=== PATIENT | male | born 1960 | race Caucasian/White ===

== ENCOUNTER 2020-02-23 07:27 | Outpatient (CLI) | payer OTHER, SELFPAY ==
--- NOTE | ~2020-02-23 | US_ITS ---
EXAMINATION: US right upper quadrant EXAM DATE: 02/23/2020 08:14 INDICATION: Elevated liver enzymes. TECHNIQUE: Multiple grayscale and Doppler images of the abdomen right upper quadrant were obtained (tayla y a technologist who performed the scan) and subsequently reviewed. There is no prior study for lior toney. FINDINGS: The pancreatic head and body are normal in appearance. The pancreatic tail is not visualized. There is echogenic liver parenchyma, hepatic steatosis. There are no focal liver lesions identified. Th ere is no evidence of intrahepatic biliary duct dilation. Portal venous flow was seen in the hepatop edal, normal direction and has normal Doppler waveform. No right-sided hydronephrosis. Common bile duct measures 5 mm, which is normal. The gallbladder wall is normal in thickness, with ex pected amount of distention. No sonographic evidence of pericholecystic fluid. There is no cholelit hiases. Technologist performing exam reports patient did not demonstrate sonographic Zhou's sign. Please note that this sign is less reliable in patients who have received pain medication. IMPRESSION: 1. Hepatic steatosis. Reviewed, dictated and finalized at location B. IMPRESSION: 1. Hepatic steatosis.
== END 2020-02-23 07:28 | disposition home or self-care (01) ==
LOC: ANHIMG 07:29
PROVIDERS: PCP Family Medicine; Visit Provider Physician Assistant
DX: R74.8 Abnormal levels of other serum enzymes (principal)
CPT/HCPCS: 76705

== ENCOUNTER 2020-02-24 00:24 | Outpatient (CLI) | payer OTHER, SELFPAY ==
[2020-02-24 19:45] LABS: SARS-CoV-2 RNA PCR Negative
== END 2020-02-24 00:25 | disposition home or self-care (01) ==
LOC: ANHCOVIDDT 00:25
PROVIDERS: PCP Family Medicine; Visit Provider Internal Medicine Gastroenterology
DX: Z01.812 Encounter for preprocedural laboratory examination (principal); Z11.59 Encounter for screening for other viral diseases
CPT/HCPCS: 87635; C9803; U0003

== ENCOUNTER 2020-02-26 03:56 | Day surgery (SDC) | payer OTHER, SELFPAY ==
[2020-02-19 11:46] VITALS: BMI 32.8
[2020-02-26 06:44] VITALS: BMI 29.5
[2020-02-26] MEDS: LACTATED RINGERS 1,000 ML 150 ML IV CONT (07:00)
--- NOTE | 2020-02-26 07:17 | P.CONGI_ITS ---
Assessment and Plan Assessment and plan (1) History of colon polyps: Code(s): Z86.010 - Personal history of colonic polyps Status: Acute Assessment and Plan: Plan is for colonoscopy at this time it has been 5 years since last colonoscopy exam. Patient has a history of colon polyps himself as well as family history of colon polyps in his mother. Plan to proceed with colonoscopy today. (2) Family history of colonic polyps: Code(s): Z83.71 - Family history of colonic polyps Status: Acute (3) Hepatic steatosis: Code(s): K76.0 - Fatty (change of) liver, not elsewhere classified Status: Acute (4) Type 2 diabetes mellitus with hyperglycemia: Code(s): E11.65 - Type 2 diabetes mellitus with hyperglycemia Status: Acute GI Consult Note Consult date/time: 02/26/20 07:17 HPI: Jefe Rodriguez is a 59 year old male Seen in evaluation at the request of Dr. Eugene Spencer. Patient presents for colonoscopy. He has a distant history of colon polyps himself. His current weight appetite bowel was normal. He denies abdominal pain is bowel habits are normal. He denies any blood in his stools. Family history is significant that his mother has had colon polyps as well. Patient gives a recent diagnosis diabetes mellitus. His known to have fatty liver. [facility] Past Medical History Medical History Elevated liver enzymes Hepatic steatosis Left ear impacted cerumen Family History Family History Father Family history of coronary artery disease Social History Social History Smoking status: Former smoker Tobacco type: cigarettes Smoking end date: 08/27/19 Alcohol intake: never Meds Home Medications and Allergies Home Medications Medication Instructions Recorded Confirmed Type blood sugar diagnostic #100 each 09/04/19 Rx amlodipine 5 mg tablet 5 mg PO DAILY #30 tablet 01/23/20 02/19/20 Rx empagliflozin 25 mg tablet 25 mg PO QAM #30 tablet 01/23/20 02/19/20 Rx lisinopril 40 mg tablet 40 mg PO DAILY #90 tablet 01/23/20 02/19/20 Rx atorvastatin 10 mg tablet See Rx Instructions .ROUTE 02/06/20 02/19/20 Rx .COMPLEX #90 tablet aspirin [Aspir-81] 81 mg PO DAILY 02/19/20 02/19/20 History metformin 2,000 mg PO DAILY 02/19/20 02/19/20 History Allergies Allergy/AdvReac Type Severity Reaction Status Date / Time Penicillins Allergy Intermediate Nausea and Verified 02/26/20 06:43 Vomiting Exam Narrative: Exam Narrative: Physical exam reveals patient to be alert. Vital signs stable. HEENT exam unremarkable. Patient is anicteric. Lungs are clear to auscultation and percussion. Heart is without murmur or extra sounds. Abdominal exam bowel sounds are present soft nontender with no organomegaly. Digital external rectal exam is normal.
--- NOTE | 2020-02-26 07:29 | WPDANESEPPF ---
Anes - Initial Pre Proc Eval Procedure: Operation Date: 02/26/20 08:00 Proposed Procedures p Screening Colonoscopy - Feliz Reyes MD Date/Time: 02/26/20 07:29 Surgeon: Feliz Reyes MD Pre Op Diagnosis: Neoplasm Screening, Hx of Colon Polyps Patient Data Age: 59 Gender: M Height: 1.83 m Weight: 98.6 kg Allergies Allergy/AdvReac Type Severity Reaction Status Date / Time Penicillins Allergy Intermediate Nausea and Verified 02/26/20 06:43 Vomiting Home Medications Medication Instructions Recorded Confirmed Type blood sugar diagnostic #100 each 09/04/19 Rx amlodipine 5 mg tablet 5 mg PO DAILY #30 tablet 01/23/20 02/19/20 Rx empagliflozin 25 mg tablet 25 mg PO QAM #30 tablet 01/23/20 02/19/20 Rx lisinopril 40 mg tablet 40 mg PO DAILY #90 tablet 01/23/20 02/19/20 Rx atorvastatin 10 mg tablet See Rx Instructions .ROUTE 02/06/20 02/19/20 Rx .COMPLEX #90 tablet aspirin [Aspir-81] 81 mg PO DAILY 02/19/20 02/19/20 History metformin 2,000 mg PO DAILY 02/19/20 02/19/20 History Patient hx anesthesia problems: none Family hx anesthesia problems: none PMFSH Past Medical History Medical History (Updated 02/26/20 @ 07:30 by Loi Perez MD) Elevated lipids Elevated liver enzymes Essential hypertension Hepatic steatosis Left ear impacted cerumen Overweight (BMI 25.0-29.9) Smoking Type 2 diabetes mellitus with hyperglycemia Family History Family History Father Family history of coronary artery disease Social History Social History Smoking status: Former smoker Tobacco type: cigarettes Smoking end date: 08/27/19 Alcohol intake: never Anes - Eval Final PreProcedure Day of Procedure 02/26/20 07:29 Patient weight: overweight Heart: regular rate and rhythm Lungs: clear to auscultation and normal air movement Airway: Mallampati scale class II Neurological: alert and oriented Last oral intake: >/= 8 hours ASA classification: III Emergent: no Anesthetic plan: proceed Anesthesia type and monitoring: general GIVS Informed Consent: The patient's anesthetic plan and its attendant risks and benefits were discussed with the patient/family/POA. Questions were solicited and answers provided to the satisfaction of the patient/family/POA.
[2020-02-26 08:53] VITALS: BP 101/69; PULSE 62; RESP 19; O2SAT 97
[2020-02-26 09:03] VITALS: BP 110/70; PULSE 55; RESP 20; O2SAT 98
[2020-02-26 09:13] VITALS: BP 112/72; PULSE 54; RESP 22; O2SAT 97
[2020-02-26 13:30] LABS: Glucose Point of Care 161 (65-105)
== END 2020-02-26 09:22 | disposition home or self-care (01) ==
PROVIDERS: PCP Family Medicine; Visit Provider Internal Medicine Gastroenterology
PROC: 0DJD8ZZ Inspection of Lower Intestinal Tract, Via Natural or Artificial Opening Endoscopic (ICD-10-PCS; CPT 45378; principal; 2020-02-26 08:00)
DX: Z12.11 Encounter for screening for malignant neoplasm of colon (principal); D12.5 Benign neoplasm of sigmoid colon; K64.8 Other hemorrhoids; K57.30 Diverticulosis of large intestine without perforation or abscess without bleeding; Z83.71 Family history of colonic polyps; K76.0 Fatty (change of) liver, not elsewhere classified; I10 Essential (primary) hypertension; E78.5 Hyperlipidemia, unspecified; E11.65 Type 2 diabetes mellitus with hyperglycemia; Z87.891 Personal history of nicotine dependence; Z79.84 Long term (current) use of oral hypoglycemic drugs; Z79.82 Long term (current) use of aspirin
CPT/HCPCS: 45385; 88305; J2704; J7120

== ENCOUNTER → 2022-03-30 15:01 | Outpatient (CLI) | payer BC, SELFPAY ==
--- NOTE | ~2022-03-30 | CT_ITS ---
EXAMINATION: CT lung screening DATE: 03/30/2022 15:16 INDICATION: lung cancer screen TECHNIQUE: Computed tomography (CT) of the chest was performed without intravenous contrast. Addition al 3D reconstructions utilizing coronal maximum intensity projection (MIP) were performed. Automated exposure control and iterative reconstruction technique were employed. The dose-length product was 19 0.87 mGy-cm. COMPARISON: 04/04/2019 FINDINGS: Unchanged 2 mm right upper lobe nodule on series 4, image 3435. No other suspicious pulmonary nodules , pneumonia, pulmonary edema or pleural effusion. Heart size is normal. Atherosclerotic coronary shilpa ry calcific location. No pericardial effusion. Thoracic aorta is normal in caliber. No pathologically enlarged thoracic lymphadenopathy. Diffuse hepatic steatosis. Small hiatal hernia containing fat an d a few small lymph nodes. Stable appearance of a chronic mild T6 compression fracture. Moderate to s evere thoracic spondylosis. IMPRESSION: 1. Lung-RADS category 2: Benign appearance or behavior. Continue annual screening with noncontrast lo w-dose chest CT in 12 months. Reviewed, dictated and finalized at location A. IMPRESSION: 1. Lung-RADS category 2: Benign appearance or behavior. Continue annual screeni ng with noncontrast low-dose chest CT in 12 months.
== END ==
PROVIDERS: PCP Family Medicine; Visit Provider Family Medicine
DX: Z12.2 Encounter for screening for malignant neoplasm of respiratory organs (principal); Z87.891 Personal history of nicotine dependence
CPT/HCPCS: 71271

== ENCOUNTER → 2023-04-03 13:16 | Outpatient (CLI) | payer BC, SELFPAY ==
--- NOTE | ~2023-04-03 | CT_ITS ---
EXAMINATION: CT lung screening DATE: 04/03/2023 13:29 INDICATION: Z87.891 - Personal history of nicotine dependence TECHNIQUE: Computed tomography (CT) of the chest was performed without intravenous contrast. Addition al 3D reconstructions utilizing coronal maximum intensity projection (MIP) were performed. Automated exposure control and iterative reconstruction technique were employed. The dose-length product was 22 6.21 mGy-cm. COMPARISON: 03/30/2022 FINDINGS: Unchanged 2 mm right upper lobe nodule on series 4, image 33 & 34. Unchanged 5 x 1-2 mm flat nodule a long the right minor fissure most likely an intrafissural lymph node. No new or enlarging pulmonary n odules, pneumonia, pulmonary edema or pleural effusion. Arch size is normal. Atherosclerotic coronary artery calcification. No pericardial effusion. No pathologically enlarged thoracic lymphadenopathy. Small sliding-type hiatal hernia with additional small amount of herniated fat and a few lymph nodes which are unchanged. Diffuse hepatic steatosis. Moderate to severe thoracic spondylosis with chronic mild anterior wedging of the T6 vertebral body. IMPRESSION: 1. Lung-RADS category 2: Benign appearance or behavior. Continue annual screening with noncontrast lo w-dose chest CT in 12 months. Reviewed, dictated and finalized at location L. IMPRESSION: 1. Lung-RADS category 2: Benign appearance or behavior. Continue annual screeni ng with noncontrast low-dose chest CT in 12 months.
== END ==
PROVIDERS: PCP Family Medicine; Visit Provider Physician Assistant
DX: Z12.2 Encounter for screening for malignant neoplasm of respiratory organs (principal); Z87.891 Personal history of nicotine dependence
CPT/HCPCS: 71271

== ENCOUNTER 2023-12-31 18:22 | Emergency (ER) | payer OTHER, BC, SELFPAY ==
--- NOTE | ~2023-12-31 | CT_ITS ---
EXAMINATION: CT brain wo con DATE: 12/31/2023 20:14 INDICATION: head injury . TECHNIQUE: Computed tomography (CT) of the head was performed without intravenous contrast. The mA wa s adjusted according to patient size. Iterative reconstruction technique was employed. The dose-lengt h product was 681.00 mGy-cm. COMPARISON: None. FINDINGS: No acute intracranial hemorrhage or extra-axial fluid collection. No hydrocephalus, mass, or herniation. No acute ischemic infarct. Unremarkable dural venous sinus attenuation. No acute osseous abnormality. Retention cyst/polyps in the left inferior maxillary sinus, the remaining aerated spaces are clear. IMPRESSION: No acute intracranial process. Reviewed, dictated and finalized at location K.
--- NOTE | ~2023-12-31 | CT_ITS ---
EXAMINATION: CT cervical spine wo con DATE: 12/31/2023 20:14 INDICATION: neck pain s/p injury TECHNIQUE: Computed tomography (CT) of the cervical spine was performed without intravenous contrast. Automated exposure control and iterative reconstruction technique were employed. The dose-length pro duct was 681.00 mGy-cm. COMPARISON: None. FINDINGS: Vertebral Body Alignment: Intact. Minimal retrolisthesis at C3-4 likely secondary to degenerative william nges. Craniocervical and atlantoaxial alignment: Moderate degenerative change. Alignment intact. Osseous structures/fracture: No evidence of a lytic or blastic process in the visualized spine. No e vidence of acute fracture. Chronic appearing degenerative height loss at C3-C5. Cervical soft tissues: The paraspinal soft tissues planes are maintained. Degenerative changes: Degenerative changes, without severe neural foraminal or central canal narrowin g. IMPRESSION: No acute fracture or traumatic malalignment in the cervical spine. Reviewed, dictated and finalized at location K.
--- NOTE | ~2023-12-31 | CT_ITS ---
EXAMINATION: CT chest abdomen pelvis w con DATE: 12/31/2023 23:46 INDICATION: trauma, scapula fracture . TECHNIQUE: Computed tomography (CT) of the chest, abdomen, and pelvis was performed with 100 mL Omnip aque-350 intravenous contrast. Automated exposure control and iterative reconstruction technique were employed. The dose-length product was 1487.26 mGy-cm. COMPARISON: X-ray shoulder same date; CT lung screening 04/03/2023 FINDINGS: CHEST: No thoracic aortic injury. No mediastinal hematoma. Large hiatal hernia containing fat, small volume fluid, and multiple lymph n odes. The overall size of the herniation and degree of fluid has increased. No pericardial effusion. No acute lung injury. No pleural effusion or pneumothorax. ABDOMEN/PELVIS: No solid organ injury. Hepatomegaly with cirrhotic change. Simple liver and renal cysts. No evidence of bowel or mesenteric injury. Extensive diverticulosis without diverticulitis. No free fluid or free air. No retroperitoneal hematoma. Pelvic contents are atraumatic. Marked urinary bladder distention. MUSCULOSKELETAL: Comminuted fracture of the left scapular body. Mild stable anterior wedge deformity of T6. Minimal retrolisthesis at L2-3, presumably on a degenerat dayton basis. Lumbar scoliosis. IMPRESSION: Comminuted left scapular body fracture. Otherwise, no acute traumatic process detected in the chest, abdomen, or pelvis. Marked urinary bladder distention, correlate for symptoms of urinary retention. Reviewed, dictated and finalized at location K. IMPRESSION: Comminuted left scapular body fracture. Otherwise, no acute traumatic process detected in the chest, abdomen, or pelvis . Marked urinary bladder distention, correlate for symptoms of urinary retention.
--- NOTE | ~2023-12-31 | XR_ITS ---
EXAM: XR elbow LT min 3V DATE: 12/31/2023 20:21 HISTORY: pain status post injury . COMPARISON: None available. FINDINGS: Normal mineralization. No fracture or dislocation. No lytic or blastic lesion. Mild degene rative change in the elbow. No erosion or periosteal change. Soft tissues within normal limits. IMPRESSION: No acute osseous finding in the left elbow. Reviewed, dictated and finalized at location K.
--- NOTE | ~2023-12-31 | XR_ITS ---
EXAM: XR shoulder LT min 2V DATE: 12/31/2023 20:21 HISTORY: pain status post injury . COMPARISON: None available. FINDINGS: Normal mineralization. Vertically oriented, mildly comminuted fracture through the scapula r body. No lytic or blastic lesion. Joint spaces are maintained. No erosion or periosteal change. Sof t tissues within normal limits. IMPRESSION: Comminuted scapular body fracture. Reviewed, dictated and finalized at location K.
[2023-12-31 18:31] VITALS: TEMP 36.9
[2023-12-31 18:35] VITALS: BP 136/76; PULSE 74; RESP 18; TEMP 36.9; O2SAT 97
[2023-12-31 20:00] VITALS: BP 132/72; PULSE 79; RESP 18; O2SAT 95
[2023-12-31 21:00] VITALS: BP 135/76; PULSE 78; RESP 17; O2SAT 95
[2023-12-31] MEDS: MORPHINE SULFATE (*CRX) 4 MG/ML INJ IV PUSH (21:17)
[2023-12-31 22:00] VITALS: BP 123/109; PULSE 79; RESP 18; O2SAT 98
[2023-12-31 23:13] LABS: Basophils Absolute Auto 0.1 K/mm3 (0.0-0.1); Basophils Percent Auto 0.5 % (0.2-1.2); Eosinophils Absolute Auto 0.2 K/mm3 (0-0.3); Eosinophils Percent Auto 1.4 % (0-4.4); Hematocrit 39.3 % (42.0-52.0); Hemoglobin 12.6 g/dL (14.0-18.0); Immature Granulocyte Absolute 0.06 K/mm3 (0.00-0.031); Immature Granulocyte Percent A 0.4 % (0-0.5); Lymphocytes Absolute Auto 2.07 K/mm3 (0.9-3.2); Lymphocytes Percent Auto 14.3 % (18.3-44.2); Mean Corpuscular HGB Conc 32.1 g/dl (32-36); Mean Corpuscular Hemoglobin 29.9 pg (26-34); Mean Corpuscular Volume 93.3 fl (80-100); Mean Platelet Volume 9.8 fl (7.4-10.4); Monocytes Absolute Auto 1.1 K/mm3 (0.1-0.6); Monocytes Percent Auto 7.9 % (2.6-8.5); Neutrophils Percent Auto 75.5 % (45.5-73.1); Platelet Count Result 319 k/mm3 (150-375); Red Blood Count 4.21 M/mm3 (4.6-6.20); Red Cell Distribution Width 13.2 % (11.5-14.5); White Blood Count 14.5 K/mm3 (4.5-10.0)
[2023-12-31 23:25] VITALS: BP 146/77; PULSE 79; RESP 17; O2SAT 100
[2023-12-31 23:25] LABS: Alanine Aminotransferase 51 U/L (6-50); Albumin Level 4.7 g/dL (3.5-5.1); Alkaline Phosphatase 148 U/L (38-126); Anion Gap 11 mmol/L (4-12); Aspartate Amino Transferase 44 U/L (17-59); Bilirubin,Total 0.7 mg/dL (0.2-1.3); Blood Urea Nitrogen 28 mg/dL (9-20); Calcium 9.9 mg/dL (8.4-10.2); Carbon Dioxide 20 mmol/L (22-30); Chloride 108 mmol/L (98-107); Estimated CRCL calculation 72 ml/min; Estimated Glomerular Filt Rate > 60; Glucose 155 mg/dL (65-110); Potassium 5.5 mmol/L (3.4-5.0); Sodium 139 mmol/L (137-145)
--- NOTE | 2024-01-01 00:40 | ED.GENADULT ---
HPI - General Adult General Chief complaint: Fall Stated complaint: fall Time Seen by Provider: 12/31/23 19:52 History of Present Illness HPI narrative: Patient is a 63-year-old gentleman presents emergency department with chief complaint of left shoulder pain and head injury patient reports that no loss of consciousness reports that he does have a headache and reports he has neck pain patient reports he has pain in the left scapular area and also pain in left shoulder and elbow. Patient denies loss of consciousness Related Data Allergies Allergy/AdvReac Type Severity Reaction Status Date / Time Penicillins Allergy Intermediate Nausea and Verified 12/18/23 09:54 Vomiting Review of Systems Review of Systems: A 10 system review of systems was completed on the patient and is negative except for what is stated in the HPI. Nursing and ancillary documentation was reviewed. [facility] Past Medical History Medical History Elevated lipids Elevated liver enzymes Essential hypertension Hepatic steatosis Left ear impacted cerumen Overweight (BMI 25.0-29.9) Smoking Type 2 diabetes mellitus with hyperglycemia Family History Family History Father Family history of coronary artery disease Social History Social History Smoking status: Former smoker Tobacco type: cigarettes Smoking end date: 08/27/19 Alcohol intake: never Substance use: never Lack of Transportation: No Lack of Food: Never True Current Housing: I Have Housing Concerned About Future Housing: No Difficulty Paying Gas/Electric Bills: No Difficulty Paying for Meds: No Currently Unemployed: Decline to Answer Education: Decline to Answer Difficulty w/ Childcare or Family Care: Decline to Answer Living arrangements: with family Occupation/Education: retired Gender identity (if verbalized by the patient): Male Sexual Orientation (if Verbalized by the Patient): Straight or Heterosexual Exam Narrative: GENERAL: Well-appearing, well-nourished, and in no acute distress. HEAD: Normocephalic, atraumatic. EYES: PERRLA and EOMI. ENT: Nares clear, no rhinorrhea or epistaxis. Mucous membranes moist. NECK: Supple. CHEST: Clear to auscultation. No respiratory distress. HEART: Regular rate and rhythm. No murmur heard. Normal peripheral pulses. ABDOMEN: Soft, nontender, nondistended, normal active bowel sounds. EXTREMITIES: Normal range of motion pain is limited to the left shoulder secondary to pain. There is tenderness to palpation in the left scapular area. No edema. SKIN: Warm, dry, no rash. NEURO: No focal deficits. Alert and oriented x3. PSYCH: Normal mood and affect. Course Vital Signs Vital signs: Vital Signs Temperature 36.9 C 12/31/23 18:31 Temperature 36.9 C 12/31/23 18:35 Pulse Rate 79 12/31/23 23:25 Respiratory Rate 17 12/31/23 23:25 Blood Pressure 146/77 H 12/31/23 23:25 Pulse Oximetry 100 12/31/23 23:25 Medical Decision Making MDM Narrative Medical decision making narrative: Differential diagnosis includes blunt trauma, intrathoracic injury, scapular fracture, shoulder fracture shoulder dislocation head injury cervical spine fracture CT head and CT C-spine showed no acute abnormality. Plain film x-rays of the left shoulder showed evidence of a scapular fracture without shoulder dislocation shoulder fracture. CT chest abdomen pelvis showed evidence of a scapular body fracture on the left but otherwise no acute intrathoracic or intra-abdominal pathology. The case was discussed with orthopedics who will follow-up the patient is an outpatient patient placed in a sling and given a prescription for pain control Vital Signs Vital Signs: Vital Signs Temperature 36.9 C 12/31/23 18:31
[2024-01-01] MEDS: HYDROcodone/acetaminophen (*CRX) 5-325 MG TABLET 1 TAB PO (00:43)
== END 2024-01-01 00:58 | disposition home or self-care (01) ==
PROVIDERS: Emergency Provider Emergency Medicine; PCP Family Medicine
DX: S42.112A Displaced fracture of body of scapula, left shoulder, initial encounter for closed fracture (principal); I10 Essential (primary) hypertension; K76.0 Fatty (change of) liver, not elsewhere classified; E11.9 Type 2 diabetes mellitus without complications; Z87.891 Personal history of nicotine dependence; W20.8XXA Other cause of strike by thrown, projected or falling object, initial encounter
CPT/HCPCS: 36415; 70450; 71260; 72125; 73030; 73080; 74177; 80053; 85025; 96374; 99284; A4565; A9270; J2270; Q9967

== ENCOUNTER 2024-01-17 15:15 | Outpatient (CLI) | payer BC, SELFPAY ==
--- NOTE | ~2024-01-17 | XR_ITS ---
XR scapula LT DATE: 01/17/2024 15:32 INDICATION: Left scapular fracture TECHNIQUE: AP and Neer views COMPARISON: 12/31/2023 left shoulder FINDINGS: No significant change in position or alignment is evident at the comminuted fracture of the body of the scapula since 12/31/2023. Osteopenia. Normal alignment at the acromioclavicular and glenohumeral joints. IMPRESSION: Comminuted scapular body fracture Reviewed, dictated and finalized at location B.
== END 2024-01-17 15:16 ==
LOC: MICIMG 15:19
PROVIDERS: PCP Family Medicine; Visit Provider Family Medicine
DX: S42.109D Fracture of unspecified part of scapula, unspecified shoulder, subsequent encounter for fracture with routine healing (principal); X58.XXXD Exposure to other specified factors, subsequent encounter
CPT/HCPCS: 73010

== ENCOUNTER 2024-04-04 01:13 | Day surgery (SDC) | payer BC, SELFPAY ==
[2024-02-27 15:25] VITALS: BMI 28.4
--- NOTE | 2024-03-14 06:06 | SUR.PREOP ---
PATIENT CALLED AT 0600 STATING HE IS RUNNING A FEVER AND HAS DIARRHEA AND NEEDS TO CANCEL. PATIENT RESCHEDULED TO APR 04 1600.
[2024-04-02 10:05] VITALS: BMI 28.4
[2024-04-04 11:42] VITALS: BP 119/71; PULSE 76; RESP 17; TEMP 36.5; O2SAT 97
--- NOTE | 2024-04-04 11:48 | WPDANESEPPF ---
Anes - Initial Pre Proc Eval Procedure: Operation Date: 04/04/24 16:00 Proposed Procedures p Esophagogastroduodenoscopy - Jassi Burton MD Date/Time: 04/04/24 11:48 Surgeon: Jassi Burton MD Pre Op Diagnosis: Cirrhosis of liver Patient Data Age: 63 Gender: M Height: 1.83 m Weight: 89.7 kg Last Vital Signs Temp 97.7 F 04/04/24 11:42 Pulse 76 04/04/24 11:42 Resp 17 04/04/24 11:42 BP 119/71 04/04/24 11:42 Pulse Ox 97 04/04/24 11:42 O2 Del Method Room Air 04/04/24 11:42 Allergies Allergy/AdvReac Type Severity Reaction Status Date / Time Penicillins Allergy Intermediate Nausea and Verified 04/04/24 11:40 Vomiting Home Medications Medication Instructions Recorded Confirmed Type blood sugar diagnostic (Blood #100 ea 08/25/21 03/24/24 Rx Glucose Test strips) lancets #100 ea 03/01/22 03/24/24 Rx amlodipine 5 mg tablet See Rx Instructions .Route 08/15/23 03/24/24 Rx .COMPLEX #90 tabs glipizide 10 mg tablet, extended 10 mg PO DAILY #90 tabs 08/31/23 03/24/24 Rx release 24 hr empagliflozin 25 mg tablet 25 mg PO QAM #90 tabs 09/04/23 03/24/24 Rx (Jardiance) lisinopril 40 mg tablet 40 mg PO DAILY #90 tabs 09/26/23 03/24/24 Rx atorvastatin 10 mg tablet See Rx Instructions .Route 12/02/23 03/24/24 Rx .COMPLEX #90 tabs metformin 500 mg tablet See Rx Instructions .Route 12/02/23 03/24/24 Rx .COMPLEX #360 tabs aspirin 81 mg tablet,delayed 81 mg PO DAILY 01/17/24 03/24/24 History release naproxen sodium 220 mg capsule 220 mg PO BID PRN Pain 01/17/24 03/24/24 History (Aleve) ferrous sulfate 325 mg (65 mg 325 mg PO DAILY 1 month #30 tabs 02/27/24 03/24/24 Rx iron) tablet tamsulosin 0.4 mg capsule 0.4 mg PO QHS #30 caps 04/04/24 Rx Patient hx anesthesia problems: none Family hx anesthesia problems: none Results Review: All pre-operative results and documents have been reviewed as part of the pre-operative evaluation. [facility] Past Medical History Medical History (Updated 03/24/24 @ 09:33 by AVTAR Kidd) Elevated lipids Elevated liver enzymes Essential hypertension Hepatic cirrhosis Hepatic steatosis Iron deficiency anemia Left ear impacted cerumen Overweight (BMI 25.0-29.9) Type 2 diabetes mellitus with hyperglycemia Family History Family History Father Family history of coronary artery disease Social History Social History Smoking packs per day: 1.5 Smoking cigarettes per day: 30.0 Years smoked: 40 Smoking pack-years: 60.00 Smoking status: Former smoker Tobacco type: cigarettes Smoking end date: 08/27/19 Alcohol intake: never Substance use type: does not use Do You Feel Safe in your Home?: Yes Lack of Transportation: No Lack of Food: Never True Current Housing: I Have Housing Concerned About Future Housing: No Difficulty Paying Gas/Electric Bills: No Difficulty Paying for Meds: No Currently Unemployed: No Education: Decline to Answer Difficulty w/ Childcare or Family Care: No Living arrangements: with family Occupation/Education: retired Gender identity (if verbalized by the patient): Male Sexual Orientation (if Verbalized by the Patient): Straight or Heterosexual Spiritual care concerns: No Anes - Eval Final PreProcedure Day of Procedure 04/04/24 11:48 Patient weight: normal Heart: regular rate and rhythm Lungs: clear to auscultation Airway: Mallampati scale class II Neurological: alert and oriented Last oral intake: >/= 8 hours ASA classification: III Emergent: no Anesthetic plan: proceed Anesthesia type and monitoring: general GIVS and standard monitoring Results Review: All pre-operative results and documents have been reviewed as part of the pre-operative evaluation. Informed Consent: The patient's anesthetic plan and
[2024-04-04] MEDS: LACTATED RINGERS 1,000 ML 150 ML IV CONT (11:53)
[2024-04-04 11:55] LABS: Glucose Point of Care 198 mg/dl (65-105)
--- NOTE | 2024-04-04 11:55 | WPDHPUPDATE1 ---
History and Physical Update Update Date/Time: 04/04/24 11:55 History and Physical has been reviewed, including an updated exam of the patient. There are NO changes in the patient's condition. Risks, benefits, and alternatives have been discussed and questions answered. Patient agrees to proceed with procedure.
[2024-04-04 12:02] VITALS: BP 96/56; PULSE 72; RESP 22; O2SAT 92
[2024-04-04 12:12] VITALS: BP 95/57; PULSE 65; RESP 16; O2SAT 94
[2024-04-04 12:22] VITALS: BP 106/66; PULSE 60; RESP 19; O2SAT 94
== END 2024-04-04 12:54 | disposition home or self-care (01) ==
PROVIDERS: PCP Family Medicine; Referring Provider Nurse Practitioner Family; Visit Provider Internal Medicine Gastroenterology
PROC: 0DJ08ZZ Inspection of Upper Intestinal Tract, Via Natural or Artificial Opening Endoscopic (ICD-10-PCS; CPT 43235; principal; 2024-04-04 16:00)
DX: K74.60 Unspecified cirrhosis of liver (principal); I10 Essential (primary) hypertension; D50.9 Iron deficiency anemia, unspecified; E11.9 Type 2 diabetes mellitus without complications; E78.5 Hyperlipidemia, unspecified; Z87.891 Personal history of nicotine dependence; Z79.84 Long term (current) use of oral hypoglycemic drugs; Z79.82 Long term (current) use of aspirin
CPT/HCPCS: 43235; 82948; J2704; J7120

== ENCOUNTER 2024-04-24 13:38 | Outpatient (CLI) | payer BC, SELFPAY ==
--- NOTE | ~2024-04-24 | CT_ITS ---
EXAMINATION:CT lung screening DATE: 04/24/2024 14:19 INDICATION: Personal history of nicotine dependence. Smoker who quit 5 years ago with 40 pack year hi story. TECHNIQUE: Computed tomography (CT) of the chest was performed without intravenous contrast. Automate d exposure control and iterative reconstruction technique were employed. The dose-length product (DLP ) was 318.66 mGy-cm. COMPARISON: Chest CT 12/31/2023 FINDINGS: There is mild emphysema. There are a few nodules in the lungs measuring up to 3 mm. There i s minimal atelectasis on the left. No pleural effusion. The heart size is normal. There are coronary artery calcifications. No pericardial effusion. There is a small sliding hiatal hernia. The liver dem onstrates hypertrophy of left lateral segment and surface nodularity, consistent with cirrhosis. Ther e is a 10 mm cyst in the liver. There is a periumbilical portacaval shunt. There is moderate thoracic spondylosis. There is a chronic compression fracture of T6. There is an old fracture of left scapula . IMPRESSION: 1. Lung-RADS category 2S: Benign appearance or behavior. Continue annual screening with noncontrast l ow-dose chest CT in 12 months. 2. Cirrhosis of the liver with portal venous hypertension. Reviewed, dictated and finalized at location A. IMPRESSION: 1. Lung-RADS category 2S: Benign appearance or behavior. Continue annual screen ing with noncontrast low-dose chest CT in 12 months. 2. Cirrhosis of the liver with portal venous hypertension.
== END 2024-04-24 13:39 | disposition home or self-care (01) ==
LOC: ANHIMG 13:41
PROVIDERS: PCP Family Medicine; Visit Provider Physician Assistant
DX: Z12.2 Encounter for screening for malignant neoplasm of respiratory organs (principal); K74.69 Other cirrhosis of liver; Z87.891 Personal history of nicotine dependence
CPT/HCPCS: 71271

== ENCOUNTER 2024-09-22 09:09 | Outpatient (CLI) | payer MEDICARE, SELFPAY ==
--- NOTE | ~2024-09-22 | US_ITS ---
Limited Abdominal Sonogram: Real-time sonographic imaging of the right upper quadrant was performed. Clinical History: Cirrhosis Findings: The liver appears heterogeneous, with a nodular contour, but no evidence of mass lesion or bile duct dilatation. Liver measures 24.0 cm in length. Main portal vein demonstrates normal directi on of flow. The gallbladder is well distended, and appears normal with no evidence of gallstone or wa ll thickening. The common bile duct measures 4 mm. The visualized pancreas, aorta, and IVC are unrem arkable. Impression: Cirrhotic morphology of the liver with associated hepatomegaly. Reviewed, dictated and finalized at location . [employer] Impression: Cirrhotic morphology of the liver with associated hepatomegaly.
== END 2024-09-22 09:10 | disposition home or self-care (01) ==
PROVIDERS: PCP Nurse Practitioner Family; Visit Provider Nurse Practitioner Family
DX: K74.60 Unspecified cirrhosis of liver (principal)
CPT/HCPCS: 76705

== ENCOUNTER 2025-02-04 08:53 | Outpatient (CLI) | payer MEDICARE, SELFPAY ==
--- NOTE | ~2025-02-04 | US_ITS ---
Limited Abdominal Sonogram: Real-time sonographic imaging of the right upper quadrant was performed. Clinical History: Cirrhosis Findings: The liver appears diffusely echogenic with no evidence of solid mass lesion or bile duct d ilatation. Liver measures 23.9 cm in length. 1.4 cm hepatic cyst present. Main portal vein demonstrat es normal direction of flow. The gallbladder is well distended, and appears normal with no evidence o f gallstone or wall thickening. The common bile duct measures 4 mm. The visualized pancreas, aorta, and IVC are unremarkable. Impression: Diffuse fatty infiltration of the liver, with associated hepatomegaly. Reviewed, dictated and finalized at location . Impression: Diffuse fatty infiltration of the liver, with associated hepatomegaly.
== END 2025-02-04 08:54 | disposition home or self-care (01) ==
LOC: GOSHIMG 08:53
PROVIDERS: PCP Nurse Practitioner Family; Visit Provider Nurse Practitioner Family
DX: K74.60 Unspecified cirrhosis of liver (principal); K76.0 Fatty (change of) liver, not elsewhere classified; R16.0 Hepatomegaly, not elsewhere classified
CPT/HCPCS: 76705

== ENCOUNTER 2025-05-08 08:49 | Outpatient (CLI) | payer MEDICARE, SELFPAY ==
--- NOTE | ~2025-05-08 | CT_ITS ---
EXAMINATION:CT lung screening DATE: 05/08/2025 09:05 INDICATION: Nicotine dependence, cigarettes, uncomplicated. TECHNIQUE: Computed tomography (CT) of the chest was performed without intravenous contrast. Automated exposure control and iterative reconstruction technique were employed. The dose-length product (DLP) was 197.57 mGy-cm. COMPARISON: Chest CT 04/24/2024 FINDINGS: There is mild emphysema. There is mild atelectasis bilaterally. There is a 2 mm nodule in right upper lobe. There is a 2 mm nodule in left lower lobe. There is a 3 mm nodule in left upper lobe. No pleural effusion. The heart size is normal. There are coronary artery calcifications. No pericardial effusion. There is mild bilateral gynecomastia. The liver demonstrates hypertrophy of left lateral segment and surface nodularity, consistent with cirrhosis. There is a 13 mm cyst in the liver. There is a small sliding hiatal hernia containing ascites. There is severe thoracic spondylosis. There is mild chronic height loss of multiple vertebral bodies. IMPRESSION: 1. Lung-RADS category 2S: Benign appearance or behavior. Continue annual screening with noncontrast low-dose chest CT in 12 months. 2. Cirrhosis of the liver. Reviewed, dictated and finalized at location E. IMPRESSION: 1. Lung-RADS category 2S: Benign appearance or behavior. Continue annual screen ing with noncontrast low-dose chest CT in 12 months. 2. Cirrhosis of the liver.
== END 2025-05-08 08:50 | disposition home or self-care (01) ==
LOC: GOSHIMG 08:49
PROVIDERS: PCP Family Medicine; Visit Provider Physician Assistant
DX: Z12.2 Encounter for screening for malignant neoplasm of respiratory organs (principal); F17.210 Nicotine dependence, cigarettes, uncomplicated; K74.69 Other cirrhosis of liver
CPT/HCPCS: 71271

== ENCOUNTER 2025-06-16 01:01 | Day surgery (SDC) | payer MEDICARE, SELFPAY ==
[2025-06-08 10:37] VITALS: BMI 28.5
[2025-06-16 09:39] VITALS: BP 116/70; PULSE 70; RESP 18; TEMP 36.1; O2SAT 98
[2025-06-16] MEDS: LACTATED RINGERS 1,000 ML 150 ML IV CONT (10:04)
--- NOTE | 2025-06-16 10:16 | WPDANESEPPF ---
Anes - Initial Pre Proc Eval Procedure: Operation Date: 06/16/25 11:00 Proposed Procedures p Screening Colonoscopy - Jassi Burton MD Date/Time: 06/16/25 10:16 Surgeon: Jassi Burton MD Pre Op Diagnosis: Personal history of colon polyps, unspecified Patient Data Age: 65 Gender: M Height: 1.8 m Weight: 97.7 kg Last Vital Signs Temp 36.1 C L 06/16/25 09:39 Pulse 70 06/16/25 09:39 Resp 18 06/16/25 09:39 BP 116/70 06/16/25 09:39 Pulse Ox 98 06/16/25 09:39 O2 Del Method Room Air 06/16/25 09:39 Allergies Allergy/AdvReac Type Severity Reaction Status Date / Time Penicillins Allergy Intermediate Nausea and Verified 06/16/25 09:38 Vomiting Home Medications ?Medication ?Instructions ?Recorded ?Confirmed ?Type blood sugar diagnostic (Blood #100 ea 08/25/21 04/21/25 Rx Glucose Test strips) lancets #100 ea 03/01/22 04/21/25 Rx aspirin 81 mg tablet,delayed 81 mg PO DAILY 01/17/24 06/08/25 History release ferrous sulfate 325 mg (65 mg 325 mg PO DAILY 1 month #30 tabs 10/03/24 06/08/25 Rx iron) tablet acetaminophen 500 mg tablet 500 mg PO Q6H PRN fever or pain 02/16/25 06/08/25 History (Tylenol Extra Strength) amlodipine 5 mg tablet See Rx Instructions .Route 02/16/25 06/16/25 Rx .COMPLEX #90 tabs atorvastatin 10 mg tablet See Rx Instructions .Route 02/16/25 06/08/25 Rx .COMPLEX #90 tabs cyclobenzaprine 10 mg tablet 10 mg PO TID PRN muscle spasm #30 02/16/25 06/08/25 Rx tabs empagliflozin 25 mg tablet 25 mg PO QAM #90 tabs 02/16/25 06/16/25 Rx (Jardiance) glipizide 10 mg tablet, extended 10 mg PO DAILY #90 tabs 02/16/25 06/08/25 Rx release 24 hr lisinopril 40 mg tablet 40 mg PO DAILY #90 tabs 02/16/25 06/08/25 Rx magnesium oxide 500 mg capsule 500 mg PO DAILY 02/16/25 06/08/25 History metformin 500 mg tablet See Rx Instructions .Route 02/16/25 06/08/25 Rx .COMPLEX #360 tabs Laboratory Tests 06/16/25 09:57 POC Capillary Glucose 183 H mg/dl (65-105) Patient hx anesthesia problems: none Family hx anesthesia problems: none Results Review: All pre-operative results and documents have been reviewed as part of the pre-operative evaluation. [facility] Past Medical History Medical History Metabolic dysfunction-associated steatohepatitis (MASH) Anemia Iron deficiency anemia Hepatic cirrhosis Overweight (BMI 25.0-29.9) Hepatic steatosis Elevated liver enzymes Left ear impacted cerumen Elevated lipids Essential hypertension Type 2 diabetes mellitus with hyperglycemia Family History Family History Father Family history of coronary artery disease Social History Social History Social History: Smoking packs per day: 1 Smoking cigarettes per day: 20.0 Years smoked: 40 Smoking pack-years: 40.00 Smoking status: Former smoker Tobacco type: cigarettes Smoking end date: 08/27/19 Alcohol intake: former Substance use type: does not use Do You Feel Safe in your Home?: Yes Lack of Transportation: No Lack of Food: Never True Current Housing: I Have Housing Concerned About Future Housing: No Difficulty Paying Gas/Electric Bills: No Difficulty Paying for Meds: No Currently Unemployed: No Education: Decline to Answer Difficulty w/ Childcare or Family Care: No Living arrangements: with family Occupation/Education: retired Gender identity (if verbalized by the patient): Male Sexual Orientation (if Verbalized by the Patient): Straight or Heterosexual Spiritual care concerns: No Anes - Eval Final PreProcedure Day of Procedure 06/16/25 10:16 Patient weight: obese Heart: regular rate and rhythm Lungs: clear to auscultation Airway: Mallampati scale class II Neurological: alert and oriented Last oral intake: >/= 8 hours ASA classification: IV Emergent: no Anesthetic plan: proceed Anesthesia type and monitoring: general GIVS and standard monitoring Results Review: All pre-operative results and documents have been reviewed as part of the pre-operative evaluation. Informed Consent: The patient's anesthetic plan and its attendant risks and benefits were discussed with the patient/family/POA. Questions were solicited and answers provided to the satisfaction of the patient/family/POA.
--- NOTE | 2025-06-16 10:27 | PM.HPGS ---
History of Present Illness History of Present Illness Consent: Risks, benefits, and alternatives have been discussed and questions answered. Patient agrees to proceed with procedure. Chief complaint: Personal history of colon polyps, unspecified Narrative: Jefe Rodriguez is a 65 year old male with colon polyp in 2020, also history of loose stools Review of Systems Review of Systems: All systems reviewed & are unremarkable except as noted in HPI and below PMFSH Past Medical History Medical History Metabolic dysfunction-associated steatohepatitis (MASH) Anemia Iron deficiency anemia Hepatic cirrhosis Overweight (BMI 25.0-29.9) Hepatic steatosis Elevated liver enzymes Left ear impacted cerumen Elevated lipids Essential hypertension Type 2 diabetes mellitus with hyperglycemia Family History Family History Father Family history of coronary artery disease Social History Social History Social History: Smoking packs per day: 1 Smoking cigarettes per day: 20.0 Years smoked: 40 Smoking pack-years: 40.00 Smoking status: Former smoker Tobacco type: cigarettes Smoking end date: 08/27/19 Alcohol intake: former Substance use type: does not use Do You Feel Safe in your Home?: Yes Lack of Transportation: No Lack of Food: Never True Current Housing: I Have Housing Concerned About Future Housing: No Difficulty Paying Gas/Electric Bills: No Difficulty Paying for Meds: No Currently Unemployed: No Education: Decline to Answer Difficulty w/ Childcare or Family Care: No Living arrangements: with family Occupation/Education: retired Gender identity (if verbalized by the patient): Male Sexual Orientation (if Verbalized by the Patient): Straight or Heterosexual Spiritual care concerns: No Meds Home Medications and Allergies Home Medications ?Medication ?Instructions ?Recorded ?Confirmed ?Type blood sugar diagnostic (Blood #100 ea 08/25/21 04/21/25 Rx Glucose Test strips) lancets #100 ea 03/01/22 04/21/25 Rx aspirin 81 mg tablet,delayed 81 mg PO DAILY 01/17/24 06/08/25 History release ferrous sulfate 325 mg (65 mg 325 mg PO DAILY 1 month #30 tabs 10/03/24 06/08/25 Rx iron) tablet acetaminophen 500 mg tablet 500 mg PO Q6H PRN fever or pain 02/16/25 06/08/25 History (Tylenol Extra Strength) amlodipine 5 mg tablet See Rx Instructions .Route 02/16/25 06/16/25 Rx .COMPLEX #90 tabs atorvastatin 10 mg tablet See Rx Instructions .Route 02/16/25 06/08/25 Rx .COMPLEX #90 tabs cyclobenzaprine 10 mg tablet 10 mg PO TID PRN muscle spasm #30 02/16/25 06/08/25 Rx tabs empagliflozin 25 mg tablet 25 mg PO QAM #90 tabs 02/16/25 06/16/25 Rx (Jardiance) glipizide 10 mg tablet, extended 10 mg PO DAILY #90 tabs 02/16/25 06/08/25 Rx release 24 hr lisinopril 40 mg tablet 40 mg PO DAILY #90 tabs 02/16/25 06/08/25 Rx magnesium oxide 500 mg capsule 500 mg PO DAILY 02/16/25 06/08/25 History metformin 500 mg tablet See Rx Instructions .Route 02/16/25 06/08/25 Rx .COMPLEX #360 tabs Allergies Allergy/AdvReac Type Severity Reaction Status Date / Time Penicillins Allergy Intermediate Nausea and Verified 06/16/25 09:38 Vomiting Vital Signs Vital Signs - 24 hr 06/16/25 09:39 Temperature 97 F L Pulse Rate 70 Respiratory Rate 18 Blood Pressure 116/70 Pulse Oximetry 98 Oxygen Delivery Room Air Exam Const: General: comfortable and no acute distress HENMT: Face/Nose/Sinus: Normal nares present Eyes: General: appearance normal, both eyes and all related structures Neck: Neck: no JVD Resp: Auscultation: clear to auscultation bilaterally Cardio: Rate: regular rate Rhythm: regular rhythm GI: Inspection: non-distended GI Palp: Yes Soft to palpation Skin: General skin exam: normal color Extrem: General: normal to inspection Psych: Mental Status: mental status grossly normal Assessment and Plan Assessment and plan (1) History of colon polyps: Code(s): Z86.010 - Personal history of colon polyps Status: Acute Assessment and Plan: colonoscopy
--- NOTE | 2025-06-16 10:36 | S_PTH ---
PATIENT: Jefe Rodriguez LOC: [facility]#:[id number] AGE/SX: 65/M ROOM: RE06/16/[address]: Jassi Burton MD : 1960 BED: DIS: 06/16/2025 SPEC #: [id number] RECD: 06/16/25 12:30 STATUS: STEFF REQ #: [id number] JULITA: 06/16/25 10:[address]: Jassi Burton DEPT: [facility] Surgical RECD BY: Patito Peterson ENTERED: 06/16/25 12:31 SP TYPE: Surgical OTHR DR: Eugene Spencer MD Tissues: A - Colon Polypectomy B - Colon Polypectomy C - Colon Biopsy Procedures: Hematoxylin and Eosin Stain Gross and Microscopic Level 4
[2025-06-16 10:45] VITALS: BP 105/57; PULSE 73; RESP 20; O2SAT 96
[2025-06-16 10:55] VITALS: BP 105/59; PULSE 70; RESP 18; O2SAT 96
[2025-06-16 11:05] VITALS: BP 114/69; PULSE 66; RESP 22; O2SAT 96
== END 2025-06-16 11:14 | disposition home or self-care (01) ==
PROVIDERS: PCP Family Medicine; Referring Provider Internal Medicine Gastroenterology; Visit Provider Internal Medicine Gastroenterology
PROC: 0DJD8ZZ Inspection of Lower Intestinal Tract, Via Natural or Artificial Opening Endoscopic (ICD-10-PCS; CPT 45378; principal; 2025-06-16 11:00)
DX: Z12.11 Encounter for screening for malignant neoplasm of colon (principal); D12.0 Benign neoplasm of cecum; K63.5 Polyp of colon; K64.8 Other hemorrhoids; K57.30 Diverticulosis of large intestine without perforation or abscess without bleeding; I10 Essential (primary) hypertension; E11.65 Type 2 diabetes mellitus with hyperglycemia; D50.9 Iron deficiency anemia, unspecified; E78.00 Pure hypercholesterolemia, unspecified; K75.81 Nonalcoholic steatohepatitis (NASH); R74.01 Elevation of levels of liver transaminase levels; E66.9 Obesity, unspecified; Z68.30 Body mass index [BMI] 30.0-30.9, adult; Z79.82 Long term (current) use of aspirin; Z79.84 Long term (current) use of oral hypoglycemic drugs; Z87.891 Personal history of nicotine dependence; Z82.49 Family history of ischemic heart disease and other diseases of the circulatory system
CPT/HCPCS: 45385; 45380; 82948; 88305; J2003; J2704; J7120